=== PATIENT | female | born 1970 | race African-American/Black ===

== ENCOUNTER 2018-07-31 15:30 | Emergency (ER) | payer MEDICAID ==
[~2018-07-31] VITALS: Ht 177.8 cm; Wt 95.5 kg
[2018-07-31 15:35] VITALS: Ht 177.8 cm; Wt 95.5 kg
[2018-07-31] MEDS ORDERED: VOLTAREN75 MG PO (16:47)
[2018-07-31] MEDS ORDERED: VIBRAMYCIN 100100 MG PO (16:47)
[2018-07-31 17:30] VITALS: BP 146/106
== END 2018-07-31 17:30 | disposition home or self-care (01) ==
LOC: D.ER 15:30
DX: L03.211 Cellulitis of face (principal)

== ENCOUNTER 2019-04-26 12:22 | Emergency (ER) | payer MEDICAID ==
[~2019-04-26] VITALS: Ht 177.8 cm; Wt 98.4 kg
[~2019-04-26 12:22] MED LIST: VIBRAMYCIN 100100 MG PO; VOLTAREN75 MG PO
[2019-04-26 12:29] VITALS: Ht 177.8 cm; Wt 98.4 kg
[2019-04-26] MEDS ORDERED: LIPITOR20 MG PO (12:35)
[2019-04-26] MEDS ORDERED: CLEOCIN HCL300 MG PO (12:35)
[2019-04-26] MEDS ORDERED: HYDROCODON-ACE1 EA10 PO (12:36)
[2019-04-26] MEDS ORDERED: LISINOPRIL-HCT1 EAC7 PO (12:36)
[2019-04-26 13:41] LABS: BASOPHILS 0.5 % (0-2); EOSINOPHILS 1.9 % (0-7); HEMATOCRIT 36.9 % (36.0-48.0); HEMOGLOBIN 12.2 g/dL (12-16); IMMATURE GRANULOCYTES 0.2 % (0-5); LYMPHOCYTES 32.8 % (15-50); MCHC 33.1 g/dL (31.0-37.0); MCV 87.9 fL (80.0-100.0); MONOCYTES 6.9 % (2-11); NEUTROPHILS 57.7 % (40-80); PLATELET COUNT 237 10x3/uL (130-400); RDW 13.2 % (11.5-14.5); WBC 5.8 10x3/uL (4.8-10.8)
[2019-04-26 13:52] LABS: INR 1.28 (0.85-1.17); PROTIME 15.5 SECONDS (11.6-15.0)
[2019-04-26 14:01] LABS: ALBUMIN 3.2 g/dL (3.4-5.0); ANION GAP 10.4 mmol/L (8-16); BILIRUBIN - TOTAL 0.44 mg/dL (0.2-1.3); CALCIUM 8.6 mg/dL (8.5-10.1); CARBON DIOXIDE 27.3 mmol/L (21.0-32.0); CREATININE - SERUM 0.9 mg/dL (0.6-1.3); POTASSIUM - SERUM 3.7 mmol/L (3.5-5.1); PROTEIN - SERUM 8.1 g/dL (6.4-8.2)
[2019-04-26] MEDS ORDERED: TORADOL10 MG PO (15:48)
[2019-04-26 16:22] VITALS: BP 146/93
== END 2019-04-26 16:23 | disposition home or self-care (01) ==
LOC: D.ER 12:22
PROVIDERS: Family Medicine
DX: L72.3 Sebaceous cyst (principal); M25.562 Pain in left knee

== ENCOUNTER 2019-06-16 08:49 | Emergency (ER) | payer MEDICAID ==
[~2019-06-16] VITALS: Ht 177.8 cm; Wt 98.2 kg
[~2019-06-16 08:49] MED LIST changes: +CLEOCIN HCL300 MG PO; +HYDROCODON-ACE1 EA10 PO; +LIPITOR20 MG PO; +LISINOPRIL-HCT1 EAC7 PO; +TORADOL10 MG PO
[2019-06-16 08:58] VITALS: Ht 177.8 cm; Wt 98.2 kg
[2019-06-16] MEDS ORDERED: KEFLEX500 MG PO (09:31)
[2019-06-16 09:53] VITALS: BP 162/89
== END 2019-06-16 09:54 | disposition home or self-care (01) ==
LOC: D.ER 08:49
DX: J01.90 Acute sinusitis, unspecified (principal)

== ENCOUNTER 2020-03-05 10:26 | Emergency (ER) | payer MEDICAID ==
[~2020-03-05] VITALS: Ht 177.8 cm; Wt 98.2 kg
[~2020-03-05 10:26] MED LIST changes: +KEFLEX500 MG PO
[2020-03-05 10:33] VITALS: Ht 177.8 cm; Wt 98.2 kg
[2020-03-05 11:01] LABS: BILIRUBIN NEGATIVE (NEGATIVE); GLUCOSE NEGATIVE (NEGATIVE); KETONE NEGATIVE (NEGATIVE); NITRITE NEGATIVE (NEGATIVE); UROBILINOGEN NORMAL (NORMAL)
[2020-03-05 11:04] LABS: HEMATOCRIT 41.4 % (36.0-48.0); HEMOGLOBIN 13.2 g/dL (12-16); MCH 28.6 pg (26.0-34.0); MCHC 31.9 g/dL (31.0-37.0); MCV 89.8 fL (80.0-100.0); MEAN PLATELET VOLUME 9.9 fL (7.4-10.4); PLATELET COUNT 271 10x3/uL (130-400); RBC 4.61 10x6/uL (4.00-5.40); RDW 13.1 % (11.5-14.5); WBC 5.8 10x3/uL (4.8-10.8)
[2020-03-05 11:07] LABS: RED CELLS - URINE 0-5 /hpf (0-5)
[2020-03-05 11:08] LABS: BACTERIA FEW /hpf (NEGATIVE); EPITHELIAL CELLS 0-5 /hpf (0-5)
[2020-03-05 11:09] LABS: ANION GAP 12.4 mmol/L (8-16); CALCIUM 8.7 mg/dL (8.5-10.1); CARBON DIOXIDE 25.5 mmol/L (21.0-32.0); CREATININE - SERUM 1.1 mg/dL (0.6-1.3); POTASSIUM - SERUM 3.9 mmol/L (3.5-5.1)
[2020-03-05 11:15] LABS: ALBUMIN 3.7 g/dL (3.4-5.0); BILIRUBIN - TOTAL 0.31 mg/dL (0.2-1.3)
[2020-03-05] MEDS ORDERED: KEFLEX500 MG PO (11:15)
[2020-03-05] MEDS ORDERED: MACROBID100 MG PO (11:15)
[2020-03-05 11:34] VITALS: BP 147/96
[2020-03-05 11:35] LABS: BASOPHILS 1 % (0-2); EOSINOPHILS 2 % (0-7); LYMPHOCYTES 56 % (15-50); MONOCYTES 4 % (2-11); NEUTROPHILS 37 % (40-80); PLATELET ESTIMATE NORMAL
== END 2020-03-05 11:52 | disposition home or self-care (01) ==
LOC: D.ER 10:26
PROVIDERS: Family Medicine
DX: R31.9 Hematuria, unspecified (principal); N39.0 Urinary tract infection, site not specified; M54.5 Low back pain